=== PATIENT | male | born 1970 ===

== ENCOUNTER 2017-02-08 18:12 | Emergency (ER) | payer MEDICAID ==
[~2017-02-08] VITALS: Ht 175.3 cm; Wt 67.1 kg
[2017-02-08 18:16] VITALS: BP 92/61
--- NOTE | 2017-02-08 18:32 | Emergency Room Report ---
History of Present Illness General Chief Complaint: Skin Rash/Abscess Source: Patient (Cassandra Hurtado) Present Illness HPI 46 YO male presents to the ED c/O itchy rash to the bilateral wrists, UE's , and ankles x 4 days. pt. states he has hx of schizophrenia. pt. denies N/V/F/C. pt. states he needs proper treatment for scabies. pt also states he needs medication refill request that he would like to speak to the attending Dr. huang. Denies CP, Palpitations, LOC, AMS, dizziness, Changes in Vision, Sensation, paresthesias, or a sudden severe headache. (Cassandra Hurtado) Allergies: Coded Allergies: CHLORPROMAZINE (Verified Allergy, Unknown, 02/08/17) HALOPERIDOL (Verified Allergy, Unknown, 02/08/17) MEPERIDINE (Verified Allergy, Unknown, 02/08/17) MORPHINE (Verified Allergy, Unknown, 02/08/17) PENICILLINS (Verified Allergy, Unknown, 02/08/17) RISPERIDONE (Verified Allergy, Unknown, 02/08/17) Patient History Past Medical History: see triage record Past Surgical History: none Pertinent Family History: none Social History: Reports: smoking Immunizations: UTD Reviewed Nursing Documentation: PMH: Agreed, PSxH: Agreed (Cassandra Hurtado) Nursing Documentation-PMH Past Medical History: No History, Except For History Of Psychiatric Problem: Yes (Cassandra Hurtado) Review of Systems All Other Systems: negative except mentioned in HPI (Cassandra Hurtado) Physical Exam Vital Signs Date Time Temp Pulse Resp B/P Pulse Ox O2 Delivery O2 Flow Rate FiO2 02/08/17 18:16 98.1 79 18 92/61 98 Room Air Sp02 EP Interpretation: reviewed, normal General Appearance: no apparent distress, alert, GCS 15, non-toxic Head: normocephalic, atraumatic Eyes: bilateral eye PERRL, bilateral eye normal inspection ENT: hearing grossly normal, normal voice Neck: full range of motion Respiratory: lungs clear, normal breath sounds, speaking full sentences Cardiovascular #1: regular rate, rhythm Musculoskeletal: back normal, gait/station normal, normal range of motion, non- tender Neurologic: alert, oriented x3, responsive, motor strength/tone normal, sensory intact, speech normal Psychiatric: mood/affect normal, anxious, other - pt. has sporadic train of thought, pt. is paranoid, and has rapid tangential speech. Skin: normal color, warm/dry, well hydrated, rash - multiple small papules with excoriations to bilateral wrists, UE's and bilateral ankles. No evidence of secondary infection, suspicious for infestation. No vesicles, no blisters, erythema or increased temperature to palpation. (Cassandra Hurtado) Medical Decision Making PA Attestation Dr. Tovar is my supervising Physician whom patient management has been discussed with. (Cassandra Hurtado) Diagnostic Impression: Primary Impression: Rash and other nonspecific skin eruption ER Course 46 YO male presents to the ED c/O itchy rash to the bilateral wrists, UE's , and ankles x 4 days. pt. states he has hx of schizophrenia. pt. denies N/V/F/C. pt. states he needs proper treatment for scabies. pt also states he needs medication refill request that he would like to speak to the attending Dr. huang. Denies CP, Palpitations, LOC, AMS, dizziness, Changes in Vision, Sensation, paresthesias, or a sudden severe headache. Ddx considered but are not limited to cellulitis, scabies, shingles, varicella, dermatitis, urticaria, eczema, tinea Vital signs: are WNL, pt. is afebrile H&PE are most consistent with multiple small papules with excoriations to bilateral wrists, UE's and bilateral ankles. No evidence of secondary infection , suspicious for infestation. No vesicles, no blisters, erythema or increased temperature to palpation. also suspect pt. having exacerbation of schizophrenia. ORDERS: none required at this time, the diagnosis is clinical ED INTERVENTIONS: None required at this time. - Pt. was also evaluated and seen by attending physician per pt. request. DISCHARGE: At this time pt. is stable for d/c to home. Will provide printed patient care instructions, and any necessary prescriptions. Care plan and follow up instructions have been discussed with the patient prior to discharge. (Cassandra Hurtado) ER Course I agree with the above assessment. I examined this patient. He is on Adderall. He believes the rash is scabies, however, it looks more like a rash associated with methamphetamine. He is looking for Adderall, oxycodone and clonazepam, and will discuss this with the clinic where he follows up. No SI or HI. Somewhat inappropriate affect, but purposeful. I agree with treatment plan. (Sam Tovar M.D.) Last Vital Signs Date Time Temp Pulse Resp B/P Pulse Ox O2 Delivery O2 Flow Rate FiO2 02/08/17 18:16 98.1 79 18 92/61 98 Room Air (Cassandra Hurtado) Disposition: HOME, SELF-CARE Condition: Stable Scripts Hydrocortisone (Hydrocortisone Cream 2.5%) Y Cream.appl 1 APPLIC TP BID, #28.3 GM Prov: Cassandra Hurtado 02/08/17 Diphenhydramine Hcl* (BENADRYL*) 25 Mg Capsule 25 MG ORAL Q6H Y for Itching, #20 CAP Prov: Cassandra Hurtado 02/08/17 Permethrin* (ELIMITE*) 60 Gm Cream..g. 1 APPLIC TOPIC ONCE, #60 GM 0 Refills Apply cream from head to toe; leave on for 8-14 hours before washing off with water; may reapply in 1 week if live mites appear. Prov: Cassandra Hurtado 02/08/17 Patient Instructions: Rash Additional Instructions: Take medications as directed. Follow up with a Primary Care Provider in 3-5 days, even if your symptoms have resolved. --Please review list of primary care clinics, if you do not already have a primary care provider Return sooner to ED if new symptoms occur, or current symptoms become worse. - Please note that this Emergency Department Report was dictated using [employer] technology software, occasionally this can lead to erroneous entry secondary to interpretation by the dictation equipment. Cassandra Hurtado Feb 08, 2017 18:32 Sam Tovar M.D. Feb 10, 2017 07:13
[2017-02-08] MEDS ORDERED: PERMETHRIN60 GM TOPIC (18:35)
[2017-02-08] MEDS ORDERED: BENADRYL25 MG ORAL (18:35)
[2017-02-08] MEDS ORDERED: HYDROCORTISONE30 G2 TP (18:35)
[2017-02-08 20:00] VITALS: BP 106/68
== END 2017-02-08 20:00 | disposition home or self-care (01) ==
LOC: EMR 19:18
DX: R21 Rash and other nonspecific skin eruption (principal); F20.9 Schizophrenia, unspecified; Z88.0 Allergy status to penicillin; Z88.8 Allergy status to other drugs, medicaments and biological substances; Z88.6 Allergy status to analgesic agent; F17.200 Nicotine dependence, unspecified, uncomplicated
CPT/HCPCS: 99284